=== PATIENT | male | born 1995 | race Caucasian/White ===

== ENCOUNTER 2024-05-19 10:45 | Emergency (ER) | payer OTHER, SELFPAY ==
[2024-05-19 11:05] VITALS: BP 128/94; PULSE 87; RESP 16; TEMP 36.4; O2SAT 99
--- NOTE | 2024-05-19 11:14 | ED.URI ---
HPI - URI/Sore Throat General Chief Complaint: Upper Respiratory Infection Stated Complaint: strep History of Present Illness HPI Narrative: 29-year-old male presented for complaint of sore throat. Onset yesterday. Endorses concern for strep. He denies any associated symptoms, denies difficulty swallowing or maintaining secretions, denies decreased p.o. intake. Has not taken anything for symptoms. Denies sick contacts. Related Data Home Medications Medication Instructions Recorded Confirmed bupropion HCl 150 mg 24 hr tablet, 150 mg PO DIRECTED 05/19/24 05/19/24 extended release duloxetine 20 mg capsule,delayed 20 mg PO DIRECTED 05/19/24 05/19/24 release glycopyrrolate 2 mg tablet 2 mg DIRECTED 05/19/24 05/19/24 methocarbamol 500 mg tablet 500 mg DIRECTED 05/19/24 05/19/24 Allergies Allergy/AdvReac Type Severity Reaction Status Date / Time No Known Allergies Allergy Verified 05/19/24 11:02 Review of Systems Review of Systems: CONSTITUTIONAL: Denies body aches, fever, chills, or sweats. EYES: Denies visual changes, redness, or discharge. ENT: reports sore throat Denies rhinorrhea, congestion, or otalgia. CARDIOVASCULAR: Denies chest pain, palpitations, or edema. RESPIRATORY: Denies dyspnea. GASTROINTESTINAL: Denies abdominal pain, nausea, vomiting, or diarrhea. SKIN: Denies rash, itching, or wounds. MUSCULOSKELETAL: Denies back pain, joint pain, or myalgia. NEUROLOGIC: Denies headache Exam Narrative: GENERAL: well-appearing, no acute distress. EYES: conjunctivae clear ENT: Mucous membranes moist. Left TM pearly vann with normal light reflex; Right TM mildly erythematous; no tragal tenderness. Oropharynx mildly erythematous without lesions. Tonsils not enlarged and without exudate. No drooling, no hoarseness, no trismus, uvula midline. No tripod positioning, hot potato voice, or soft palate swelling. NECK: Supple. No lymphadenopathy CHEST: Clear to auscultation, breath sounds equal. No respiratory distress, speaks in full sentences. HEART: Regular rate and rhythm. No murmur heard. SKIN: Warm, dry, no rash. NEURO: Alert and oriented x3. Course Course Emergency Course: Patient is aware of diagnosis, understands and agrees to treatment plan. Anticipatory guidance given. Patient agrees to follow-up as directed and is aware of reasons to seek care at the emergency department. Portions of this record may have been created with voice recognition software Level of Care: Express Care Visit Vital Signs Vital signs: Vital Signs Temperature 97.6 F 05/19/24 11:05 Pulse Rate 87 05/19/24 11:05 Respiratory Rate 16 05/19/24 11:05 Blood Pressure 128/94 H 05/19/24 11:05 Pulse Oximetry 99 05/19/24 11:05 Oxygen Delivery Room Air 05/19/24 11:05 Temperature 97.6 F 05/19/24 11:05 Pulse Rate 87 05/19/24 11:05 Respiratory Rate 16 05/19/24 11:05 Blood Pressure 128/94 H 05/19/24 11:05 Pulse Oximetry 99 05/19/24 11:05 Oxygen Delivery Room Air 05/19/24 11:05 MDM - URI/Sore Throat MDM Narrative Medical decision making narrative: neg strep result reviewed with pt. Advise supportive treatments. Patient is appropriate for outpatient treatment and follow-up. Differential Diagnosis Differential diagnosis: Likely upper respiratory infection, viral infection and pharyngitis Discharge Plan Discharge Clinical Impression: Pharyngitis Patient Disposition: Home, Self-Care Condition: Stable Instructions: Antibiotic Form, Pharyngitis (ED) Additional Instructions: Rapid strep swab was negative today You will be notified in a few days if the culture comes back positive for strep, and appropriate antibiotics will be called in at that time. if symptoms are due to a viral illness, it is not treated with antibiotics. Viral symptoms can be present for up to 10-14 days. Recommend Flonase spray and Zyrtec for sinus congestion/drainage Cough sy
[2024-05-19 12:04] LABS: EDSTREPNEGPOS1 Negative (Negative)
== END 2024-05-19 11:27 | disposition home or self-care (01) ==
PROVIDERS: Emergency Provider Nurse Practitioner Family
DX: J02.9 Acute pharyngitis, unspecified (principal)
CPT/HCPCS: 87081; 87880; 99213; G0463

== ENCOUNTER 2024-05-22 08:15 | Emergency (ER) | payer OTHER, SELFPAY ==
--- NOTE | 2024-05-22 08:27 | ED.URI ---
HPI - URI/Sore Throat General Chief Complaint: Upper Respiratory Infection Stated Complaint: sinus and ear infection Time Seen by Provider: 05/22/24 08:28 Source: patient Mode of arrival: ambulatory Limitations: no limitations History of Present Illness HPI Narrative: Dawood is a 29-year-old male patient presenting to the clinic today with complaints of possible sinus an ear infection x4 days. He reports no known fever or chills. He denies any body aches, chest pain, or shortness of breath. States he has sinus congestion/pressure, cough, and bilateral ear pain/pressure. Was seen on Saturday for sore throat and had a rapid strep done at that time and was negative. Strep culture was also negative for group A strep. Has been taking DayQuil/NyQuil as well as Sudafed and [id number] antihistamine for his symptoms without much relief MD elicited complaint: sore throat and nasal congestion Related Data Home Medications Medication Instructions Recorded Confirmed bupropion HCl 150 mg 24 hr tablet, 150 mg PO DIRECTED 05/19/24 05/22/24 extended release duloxetine 20 mg capsule,delayed 20 mg PO DIRECTED 05/19/24 05/22/24 release glycopyrrolate 2 mg tablet 2 mg DIRECTED 05/19/24 05/22/24 Allergies Allergy/AdvReac Type Severity Reaction Status Date / Time No Known Allergies Allergy Verified 05/22/24 08:25 Review of Systems Review of Systems: Pertinent positives per HPI. Patient denies any fever, chills, rash, headache, visual changes, dizziness, shortness of breath, chest pain, palpitations, nausea, vomiting, diarrhea, constipation, abdominal pain, or any urinary issues. PMFSH Comments At the time of my signature, I reviewed and agree with the nursing past medical, surgical, social, and family history. There is no relevant family history pertinent to the patient complaint. Exam Narrative: General: Well-developed, well nourished, in no apparent distress Head: Normocephalic, atraumatic Eyes: Pupils equally round and reactive to light bilaterally, EOM intact, sclera and conjunctive clear, no discharge, lids normal Ears: TMs intact and congested, ear canals clear, no drainage, grossly hearing normal. Nose: Nares patent, clear nasal discharge mild inflammation, maxillary sinus tenderness. Mouth: Oral pharynx without lesions or masses, good dentition, MMM. Postnasal drip Neck: Supple, trachea midline, no enlargement of anterior or posterior cervical nodes, no thyroid masses or goiter palpable. Cardio: Regular rate and rhythm, s1 and s2 normal, no murmur appreciated. Resp: Clear to auscultation bilaterally, no rhonchi, rales, wheezing or rubs Course Course Emergency Course: Portions of this record may have been created with voice recognition software. Level of Care: Express Care Visit Vital Signs Vital signs: Vital signs reviewed MDM - URI/Sore Throat MDM Narrative Medical decision making narrative: At the time of visit patient is resting comfortably on the exam table. Patient appears to be nontoxic. Labs: COVID testing was negative in the clinic today. Plan: I suspect patient has URI/otalgia. Prescription for prednisone was sent to the pharmacy to help with congestion and pressure. Supportive measures were discussed with the patient and they voiced understanding discharge instructions and agrees to treatment plan. Return precautions reviewed Differential Diagnosis Differential diagnosis: Likely upper respiratory infection, otitis media, sinusitis, viral infection, bronchitis, influenza, pharyngitis and other (COVID) Discharge Plan Discharge Clinical Impression: Upper respiratory infection Qualifiers: URI type: unspecified URI Qualified Code(s): J06.9 - Acute upper respiratory infection, unspecified Acute otalgia Qualifiers: Laterality: bilateral Qualified Code(s): H92.03 - Otalgia, bilateral Patient Disposition: Home, Self-Care Condition: Stable Instructions: Ant
[2024-05-22 08:30] VITALS: BP 127/86; PULSE 83; RESP 16; TEMP 36.4; O2SAT 100
[2024-05-22 08:56] LABS: EDCOVIDSCREEN Negative (Negative)
== END 2024-05-22 08:56 | disposition home or self-care (01) ==
PROVIDERS: Emergency Provider Nurse Practitioner Family
DX: J06.9 Acute upper respiratory infection, unspecified (principal); H92.03 Otalgia, bilateral; Z20.822 Contact with and (suspected) exposure to COVID-19; K21.9 Gastro-esophageal reflux disease without esophagitis; Z86.16 Personal history of COVID-19; F41.9 Anxiety disorder, unspecified; F32.A Depression, unspecified
CPT/HCPCS: 87426; 99213; G0463